=== PATIENT | male | born 1975 | race African-American/Black ===

== ENCOUNTER 2019-12-18 18:43 | Emergency (ER) | payer OTHER, SELFPAY ==
[2019-12-18 18:50] VITALS: BP 128/84; PULSE 67; RESP 16; TEMP 36.8; O2SAT 99
--- NOTE | 2019-12-18 19:21 | ED.GENADULT ---
HPI - General Adult General Chief complaint: Unspecified Stated complaint: cramping all over body Source: patient Mode of arrival: ambulatory History of Present Illness HPI narrative: Gama is a 44M with a PMH of pre-diabetes that presented to the ED with intense body cramps. He has had worsening body cramps for the last couple days. They are accompanied by nausea and an episode of NBNB vomiting each day. He has also had an upset stomach with gas, flatulance, and some diarrhea. 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 He has also drank 2 beers today as well. He denies CP, SOB, vision changes, and headache. He cannot identify any alleviating or aggravating factors. Related Data Home Medications Medication Instructions Recorded Confirmed dicyclomine 10 - 20 mg PO TID PRN 12/18/19 12/18/19 glipizide 2.5 mg PO DAILY 12/18/19 12/18/19 montelukast 10 mg PO DAILY 12/18/19 12/18/19 Allergies Allergy/AdvReac Type Severity Reaction Status Date / Time No Known Allergies Allergy Verified 12/18/19 19:33 Review of Systems Constitutional: Constitutional: Denies chills, Denies fever(s) and Denies weakness Eyes: Eyes: Reports no additional eye complaints ENT: Reports system reviewed and no additional complaints, except as documented Cardiovascular: Cardiovascular: Reports no additional cardiovascular complaints Respiratory: Respiratory: Reports no additional respiratory complaints Gastrointestinal: Gastrointestinal: Reports as per HPI Genitourinary: Genitourinary: Reports no additional male genitourinary complaints Musculoskeletal: Musculoskeletal: Reports as per HPI Integumentary/Breasts: Skin/Breast: Reports system reviewed and no additional complaints, except as docu Neurologic: Reports as per HPI Psychiatric: Psychiatric: Reports no additional psychiatric complaints Endocrine: Endocrine: Reports no additional endocrine complaints Hematologic/Lymphatic: Hematologic/Lymphatic: Reports no additional hematologic/lymphatic complaints Allergic/Immunologic: Allergic/Immunologic: Reports no additional allergic/immunologic complaints Exam Const: General: no acute distress and alert Orientation/consciousness: patient oriented x3 Other: No distress at baseline but he appear to be in intense pain during the cramps and has visible and palpable hypertonicity during them. HENMT: Other: Normocephalic, atraumatic Eyes: Conjunctivae: conjunctivae normal Pupils: Equal, round and reactive pupils present Neck: Neck: normal visual inspection Chest: Chest palpation & inspection: normal inspection of the chest Resp: Effort & Inspection: normal respiratory effort and not tachypneic Auscultation: clear to auscultation bilaterally Cardio: Rate: regular rate Rhythm: regular rhythm Heart sounds: no murmurs GI: GI Palp: Yes Soft to palpation, No Tenderness to palpation present (GI) and No Guarding due to palpation present (GI) Back/Spine/Pelvis: Back: no CVA tenderness Skin: General skin exam: normal color Rashes: no rashes Neuro: General: patient oriented x3 and moves all extremities Extrem: General: normal to inspection Other: During strength testing he develop severe cramping that started in the right gluteus then he jumped out of bed and doubled over with neck and back cramping. Psych: Mental Status: mental status grossly normal Course Course Emergency Course: Gama was seen and evaluated. Ordered labs as below and he was given 1L of NS and a flexeril. Cramps were very significantly improved with flexeril and fluids. Labs were largely unremarkable except for a very mildly elevated CK. He was discharged with a script for flexeril and zofran and he was instructed to hydrate well. Vital Signs Vital signs: Vital Signs Temperature 98.3 F 12/18/19 18:50 Pulse Rate 67 12/18/19 18:50 Respiratory Rate 16 12/18/19 18:50 Blood Pressure 128/84 12/18/19 18:50 Pulse Oximetry 99
[2019-12-18] MEDS: SODIUM CHLORIDE 0.9% IV 1,000 ML 999 ML IV CONT (19:25)
[2019-12-18 19:35] LABS: Basophils Absolute Auto 0.03 K/mm3 (0.00-0.10); Basophils Percent Auto 0.3 % (0.0-1.0); Eosinophils Absolute Auto 0.06 K/mm3 (0.02-0.50); Eosinophils Percent Auto 0.6 % (1.0-6.0); Hemoglobin 14.4 g/dL (14.0-18.0); Immature Granulocyte Absolute 0.04 K/mm3 (0.00-0.00); Immature Granulocyte Percent A 0.4 % (0.0-0.0); Lymphocytes Absolute Auto 2.26 K/mm3 (1.10-4.50); Lymphocytes Percent Auto 21.2 % (18.0-42.0); Mean Corpuscular HGB Conc 33.5 g/dL (32.0-36.0); Mean Corpuscular Hemoglobin 28.3 pg (27.0-31.0); Mean Corpuscular Volume 84.5 fL (78.0-102.0); Mean Platelet Volume 9.9 fl (8.7-11.0); Monocytes Absolute Auto 1.23 K/mm3 (0.10-0.90); Monocytes Percent Auto 11.5 % (2.0-11.0); Platelet Count Result 223 K/mm3 (150-420); Red Blood Count 5.09 M/mm3 (4.70-6.10); Red Cell Distribution Width 13.2 % (11.6-14.4); White Blood Count 10.7 K/mm3 (4.8-10.8)
[2019-12-18] MEDS: CYCLOBENZAPRINE HCL 10 MG TABLET PO (19:40)
[2019-12-18 19:52] LABS: Alanine Aminotransferase 28 U/L (16-63); Albumin Level 4.8 g/dL (3.4-5.0); Alkaline Phosphatase 69 U/L (46-116); Anion Gap 12 mmol/L (8-16); Aspartate Amino Transferase 24 U/L (15-37); Bilirubin,Total 0.4 mg/dL (0.00-1.00); Blood Urea Nitrogen 18 mg/dL (7-18); Calcium 8.9 mg/dL (8.5-10.1); Carbon Dioxide 23 mmol/L (21-32); Chloride 99 mmol/L (98-108); Creatine Kinase 710 U/L (39-308); Estimated CRCL calculation 62 ml/min; Estimated Glomerular Filt Rate > 60; Glucose 76 mg/dL (70-99); Osmolality Calculated 278 mOsm/kg (285-295); Potassium 3.7 mmol/L (3.5-5.1); Sodium 134 mmol/L (136-145); Total Protein 8.4 g/dL (6.4-8.2)
[2019-12-18 20:36] VITALS: BP 116/54; PULSE 65; RESP 14; O2SAT 100
[2019-12-18] MEDS: TIZANIDINE HCL 2 MG TABLET PO (20:42)
== END 2019-12-18 20:51 | disposition home or self-care (01) ==
PROVIDERS: Emergency Provider Family Medicine; PCP Family Medicine
DX: R25.2 Cramp and spasm (principal)
CPT/HCPCS: 36415; 80053; 82330; 82550; 83735; 84100; 85025; 96360; 99283; A9270; J7030

== ENCOUNTER 2020-02-13 21:54 | Emergency (ER) | payer OTHER, SELFPAY ==
[2020-02-13 22:06] VITALS: BP 124/76; PULSE 85; RESP 18; TEMP 36.6; O2SAT 97
--- NOTE | 2020-02-13 22:12 | ED.DENTAL ---
HPI - Dental/Oral General Chief complaint: Dental/Oral Stated complaint: swelling in face Source: patient Mode of arrival: ambulatory Limitations: no limitations History of Present Illness HPI Narrative: this is a 45-year-old male that presents with right facial pain with right upper molar and premolar dental pain with surrounding gum inflammation with a tender submandibular gland on the right with no fever chills no shortness of breath. The patient did not take anything for pain did smoke some marijuana thinking that this might help. Complaint: tooth pain Onset (ago): day(s) Duration: constant Severity: moderate Severity scale (1-10): 7 Exacerbating factors: chewing and cold Context: history of dental caries Associated symptoms: gum swelling, pain with swallowing and ear pain Related Data Home Medications Medication Instructions Recorded Confirmed montelukast 10 mg PO DAILY 12/18/19 02/13/20 Allergies Allergy/AdvReac Type Severity Reaction Status Date / Time No Known Allergies Allergy Verified 01/10/20 13:10 Review of Systems Review of Systems: All systems reviewed & are unremarkable except as noted in HPI and below PMFSH Past Medical History Medical History Pain, dental Exam Const: General: no acute distress and alert Orientation/consciousness: patient oriented x3 HENMT: Head: normal to inspection Eyes: Conjunctivae: conjunctivae normal Pupils: Equal, round and reactive pupils present EOM: EOMs intact bilaterally Neck: Neck: normal visual inspection and lymphadenopathy Other: right submandibular gland inflammation and tenderness with palpation Chest: Chest palpation & inspection: normal inspection of the chest Resp: Effort & Inspection: normal respiratory effort Auscultation: clear to auscultation bilaterally Cardio: Rate: regular rate Rhythm: regular rhythm GI: Auscultation: normal bowel sounds Neuro: General: patient oriented x3, moves all extremities, no meningeal signs and no focal motor deficits Psych: Mental Status: mental status grossly normal Course Course Emergency Course: patient reassessment pain level has improved with some 60 mg IM Toradol and Augmentin p.o. was given. Vital Signs Vital signs: Vital Signs Temperature 36.6 C 02/13/20 22:06 Pulse Rate 85 02/13/20 22:06 Respiratory Rate 18 02/13/20 22:06 Blood Pressure 124/76 02/13/20 22:06 Pulse Oximetry 97 02/13/20 22:06 Temperature 36.6 C 02/13/20 22:06 Pulse Rate 85 02/13/20 22:06 Respiratory Rate 18 02/13/20 22:06 Blood Pressure 124/76 02/13/20 22:06 Pulse Oximetry 97 02/13/20 22:06 Critical Care Time Critical Care Time Critical Care Time: No Discharge Plan Discharge Clinical Impression: Pain, dental, Dental abscess Patient Disposition: Home, Self-Care Condition: Stable Instructions: Antibiotic Form, Dental Abscess (ED) Additional Instructions: Take medicine as prescribed and follow-up with primary care physician/ dentist as soon as possible for further evaluation and treatment. Prescriptions: New amoxicillin 500 mg tablet 500 mg PO TID Qty: 30 RF: 0 naproxen 500 mg tablet 500 mg PO BID Qty: 14 RF: 0 No Action montelukast 10 mg tablet 10 mg PO DAILY RF: 0 Follow-up/Referrals: Nitin,Shani Jessica MD [Primary Care Provider] - Stand Alone Forms: Work/School Release IP Time of Disposition: 22:19
[2020-02-13] MEDS: KETOROLAC (*BKC) 60 MG/2 ML VIAL IM (22:21)
[2020-02-13] MEDS: AMOXICILLIN/CLAVULANATE K 875-125 MG TAB 1 TABLET PO (22:23)
--- NOTE | 2020-02-13 22:24 | PC.NURSE ---
Pt reports swelling noted to temporal area and to right jaw, no obvious swelling noted upon assessment.
== END 2020-02-13 22:35 | disposition home or self-care (01) ==
PROVIDERS: Emergency Provider Emergency Medicine; PCP Family Medicine
DX: K08.89 Other specified disorders of teeth and supporting structures (principal)
CPT/HCPCS: 96372; 99283; A9270; J1885

== ENCOUNTER 2020-06-09 11:14 | Emergency (ER) | payer OTHER, SELFPAY ==
[2020-06-09 11:15] VITALS: BP 160/109; PULSE 72; RESP 20; TEMP 36.8; O2SAT 97
--- NOTE | 2020-06-09 11:43 | ED.DENTAL ---
HPI - Dental/Oral General Chief complaint: Dental/Oral Stated complaint: Tooth ache swelling Time Seen by Provider: 06/09/20 11:20 Source: patient and family Mode of arrival: ambulatory Limitations: no limitations History of Present Illness HPI Narrative: Patient comes in after having dental pain at tooth #31 for several days. He has had no fever or chills, but has said he has had trouble eating secondary to the discomfort. Onset (ago): day(s) Duration: intermittent Severity: moderate Relieving factors: nothing Exacerbating factors: chewing and drinking fluids Context: history of dental caries Associated symptoms: gum swelling Related Data Allergies Allergy/AdvReac Type Severity Reaction Status Date / Time No Known Allergies Allergy Verified 01/10/20 13:10 Review of Systems Constitutional: Constitutional: Reports no additional constitutional complaints Eyes: Eyes: Reports no additional eye complaints ENT: Reports system reviewed and no additional complaints, except as documented Cardiovascular: Cardiovascular: Reports no additional cardiovascular complaints Respiratory: Respiratory: Reports no additional respiratory complaints Gastrointestinal: Gastrointestinal: Reports no additional gastrointestinal complaints Genitourinary: Genitourinary: Reports no additional male genitourinary complaints Musculoskeletal: Musculoskeletal: Reports no additional musculoskeletal complaints Integumentary/Breasts: Skin/Breast: Reports system reviewed and no additional complaints, except as docu Neurologic: Reports system reviewed and no additional complaints, except as documented Psychiatric: Psychiatric: Reports no additional psychiatric complaints Endocrine: Endocrine: Reports no additional endocrine complaints Hematologic/Lymphatic: Hematologic/Lymphatic: Reports no additional hematologic/lymphatic complaints Allergic/Immunologic: Allergic/Immunologic: Reports no additional allergic/immunologic complaints [facility] Past Medical History Medical History Low back pain Pain, dental Surgical History Surgical History No significant past surgical history Family History Family History (Updated 06/10/20 @ 03:09 by John Avina MD) Mother Pulmonary tuberculosis Social History Social History (Updated 06/10/20 @ 03:11 by John Avina MD) Additional smoking assessment comments: denies smoking Alcohol use details: denies any alcohol use Exam Const: General: no acute distress Orientation/consciousness: patient oriented x3 HENMT: Ears: external ears normal and TM's normal bilaterally General nose exam: Normal external nose present Face and sinus: normal facial exam Mouth: Yes Normal oral and palatal mucosa present Throat: posterior oropharynx normal Other: Tooth #31 appears to be abscessed with a distinct red ring around the tooth. Eyes: Conjunctivae: conjunctivae normal Neck: Neck: normal visual inspection and no lymphadenopathy Chest: Chest palpation & inspection: normal inspection of the chest Resp: Effort & Inspection: normal respiratory effort Cardio: Rate: regular rate Rhythm: regular rhythm GI: GI Palp: Yes Soft to palpation (nontender) Skin: General skin exam: normal color Neuro: General: patient oriented x3 and moves all extremities Extrem: General: normal to inspection Psych: Appearance: grossly normal Mental Status: mental status grossly normal Thought content: Yes Normal thought content present Course Course Emergency Course: Patient was seen and evaluated. He was discharged with a script for amoxicillin and tramadol. He was encouraged to follow up with his dentist in a few days. Vital Signs Vital signs: Vital Signs Temperature 36.8 C 06/09/20 11:15 Pulse Rate 72 06/09/20 11:15 Respiratory Rate 20 06/09/20 11:15 Blood Pressure 160/109 H 06/09/20 11:15 Pulse
[2020-06-09 11:51] VITALS: BP 158/97
== END 2020-06-09 11:52 | disposition home or self-care (01) ==
PROVIDERS: Emergency Provider Emergency Medicine; PCP Family Medicine
DX: K04.7 Periapical abscess without sinus (principal); M54.5 Low back pain; Z83.6 Family history of other diseases of the respiratory system
CPT/HCPCS: 99283

== ENCOUNTER 2021-06-23 11:23 | Outpatient (CLI) | payer OTHER, SELFPAY | END 2021-06-23 11:24 | disposition home or self-care (01) | LOC: CHSAUDIO 11:23 | PROVIDERS: PCP Family Medicine; Visit Provider Family Medicine | DX: H91.90 Unspecified hearing loss, unspecified ear (principal) | CPT/HCPCS: 92557; 92567 ==

== ENCOUNTER 2021-10-21 10:28 | Outpatient (CLI) | payer OTHER, SELFPAY ==
[2021-10-21 10:42] LABS: Post Vasectomy Sperm Presence None Seen (None Seen)
== END 2021-10-21 10:29 | disposition home or self-care (01) ==
LOC: CHSLAB 10:31
PROVIDERS: PCP Family Medicine; Visit Provider Family Medicine
DX: Z30.09 Encounter for other general counseling and advice on contraception (principal)
CPT/HCPCS: 88160; 89321